=== PATIENT | female | born 1985 | race African-American/Black ===

== ENCOUNTER 2018-02-19 10:30 | Outpatient (CLI) | END 2018-02-19 17:10 | disposition home or self-care (01) ==

== ENCOUNTER 2019-01-12 12:18 | Emergency (ER) | payer OTHER ==
[~2019-01-12] VITALS: Ht 165.1 cm; Wt 80.0 kg
--- NOTE | 2019-01-12 12:28 | ERD ---
ER Documentation Chief Complaint Chief Complaint near fainting HPI The patient is a 33-year-old female, presenting to the ER because she had a near syncopal episode at work, she has had a migraine since 9 AM this morning, complained of nausea but no vomiting. She had similar symptoms previously, complains of intermittent vaginal spotting for the last 3 months, she denies seizure, headache, neck pain, chest pain, dyspnea, abdominal pain, dysuria, diarrhea. She does not smoke, drinks socially, denies illicit drug Past medical history: Migraine Past surgical history: None ROS All systems reviewed and are negative except as per history of present illness. Medications Home Meds Active Scripts Ondansetron (Ondansetron Odt) 4 Mg Tab.rapdis, 4 MG PO Q6H PRN for NAUSEA AND/OR VOMITING, #10 TAB Prov:JOSE L LANDA MD 01/12/19 Reported Medications [ Control] No Conflict Check, 1 TAB PO DAILY 01/12/19 Allergies Allergies: Coded Allergies: No Known Allergy (Unverified , 01/12/19) Physical Exam Vitals Vital Signs Date Temp Pulse Resp B/P (MAP) Pulse Ox O2 O2 Flow FiO2 Time Delivery Rate 01/12/19 76 18 106/61 99 Room Air 15:41 (76) 01/12/19 98.2 85 16 125/75 100 12:29 (92) Physical Exam Const: No acute distress. Head: Atraumatic. Eyes: Normal Conjunctiva. ENT: Normal External Ears, Nose and Mouth. Neck: Full range of motion. No meningismus. Resp: Clear to auscultation bilaterally. Cardio: Regular rate and rhythm. Abd: Soft, non distended, normal bowel sounds, non tender. Skin: No petechiae or rashes. Back: No midline or flank tenderness. Ext: No cyanosis, or edema. Neur: Awake and alert. No focal deficit Psych: Normal Mood and Affect. Result Diagram: 01/12/19 1304 01/12/19 1305 Results 24 hrs Laboratory Tests Test 01/12/19 13:04 01/12/19 13:05 01/12/19 15:14 White Blood Count 4.8 10^3/ul Red Blood Count 4.61 10^6/ul Hemoglobin 13.5 g/dl Hematocrit 41.3 % Mean Corpuscular Volume 89.6 fl Mean Corpuscular Hemoglobin 29.3 pg Mean Corpuscular 32.7 g/dl Hemoglobin Concent Red Cell Distribution Width 13.2 % Platelet Count 310 10^3/UL Mean Platelet Volume 10.2 fl Immature Granulocytes % 0.600 % Neutrophils % 65.8 % Lymphocytes % 24.5 % Monocytes % 7.7 % Eosinophils % 0.8 % Basophils % 0.6 % Nucleated Red Blood Cells % 0.0 /100WBC Immature Granulocytes # 0.030 10^3/ul Neutrophils # 3.1 10^3/ul Lymphocytes # 1.2 10^3/ul Monocytes # 0.4 10^3/ul Eosinophils # 0.0 10^3/ul Basophils # 0.0 10^3/ul Nucleated Red Blood Cells # 0.0 10^3/ul Beta HCG, Quantitative < 2.4 mIU/ml Sodium Level 141 mmol/L Potassium Level 4.2 mmol/L Chloride Level 106 mmol/L Carbon Dioxide Level 28 mmol/L Anion Gap 7 Blood Urea Nitrogen 11 mg/dl Creatinine 0.76 mg/dl Est Glomerular Filtrat Rate mL/min > 60 mL/min Glucose Level 104 mg/dl Calcium Level 9.1 mg/dl POC Beta HCG, Qualitative NEGATIVE Current Medications Medications Dose Sig/Josr Start Time Status Last (Trade) Ordered Route PRN Stop Time Admin Dose Reason Admin Ondansetron 4 mg ONCE STAT 01/12/19 DC 01/12/19 HCl (Zofran IV 12:35 13:10 Inj) 01/12/19 12:37 Procedures/MDM EKG: Read by emergency physician Rate/Rhythm: Normal Sinus Rhythm 78 beats/min QRS, ST, T-waves: No ST elevation, no T inversion Impression: Normal EKG MEDICAL MAKING DECISION: The patient is a 33-year-old female, presenting with acute near syncopal episode of unclear etiology, was treated with Zofran IV for nausea with good response, is stable for outpatient follow-up The differential diagnoses considered include but are not limited to arrhythmogenic right ventricular dysplasia, Brugada syndrome, left ventricular hypertrophy, pulmonary embolism, QT abnormality, [id number]. Departure Diagnosis: Primary Impression: Near syncope Condition: Good Comments I discussed the findings with the patient. I advised the patient to follow-up with the primary physician in about 2-3 days, sooner if needed and return if any concern. Disclaimer: Inadvertent spelling and grammatical errors are likely due to EHR/dictation software use and do not reflect on the overall quality of patient care. Also, please note that the electronic time recorded on this note does not necessarily reflect the actual time of the patient encounter. JOSE L LANDA MD Jan 12, 2019 12:28
[2019-01-12 12:29] VITALS: Ht 165.1 cm; Wt 80.0 kg
[2019-01-12] MEDS: ONDANSETRON 4 MG INJ IV STA ×2 (12:50→13:10)
[2019-01-12] MEDS ORDERED: BIRTH CONTROL PO (13:09)
[2019-01-12] MEDS ORDERED: ONDA4TAB14 PO (15:32)
[2019-01-12 15:41] VITALS: BP 106/61; PULSE 76; RESP 18
== END 2019-01-12 15:41 | disposition home or self-care (01) ==
LOC: E/R 12:18
DX: R55 Syncope and collapse (principal); R11.0 Nausea
CPT/HCPCS: 36415; 80048; 81025; 84702; 85025; 93005; 96374; 99284; J2405